=== PATIENT | female | born 1950 | race Caucasian/White ===

== ENCOUNTER → 2018-11-12 | Outpatient (CLI) | payer MEDICARE, OTHER ==
[2018-11-12 10:11] LABS: ALBUMIN 4.1 g/dL (3.5-5.0); CHOLESTEROL 145.53 mg/dL (0-200); NEONATAL BILIRUBIN RESULT 0.2 mg/dL (0.1-1.1); TOTAL PROTEIN 7.1 g/dL (6.3-8.2); TRIGLYCERIDES 92 mg/dL (<150)
[2018-11-12 10:23] LABS: DIRECT LDL 82 mg/dL (<100)
[2018-11-12 10:30] LABS: ALANINE AMINOTRANSFERASE 23 U/L (9-52); ALKALINE PHOSPHATASE 58 U/L (38-126); ASPARTATE AMINO TRANSFERASE 25 U/L (14-36); BILIRUBIN,TOTAL 0.5 mg/dL (0.2-1.3)
[2018-11-12 10:33] LABS: BILIRUBIN,DIRECT 0.3 mg/dL (0.0-0.4)
== END ==
LOC: OD 08:51
PROVIDERS: ATTEND Internal Medicine Cardiovascular Disease
DX: E78.2 Mixed hyperlipidemia (principal); I47.1 Supraventricular tachycardia
CPT/HCPCS: 36415; 80061; 80076